=== PATIENT | male | born 1985 | race Caucasian/White ===

== ENCOUNTER 2021-12-05 08:26 | Emergency (ER) | payer OTHER ==
[2021-12-05] MEDS ORDERED: xanAX 0.5 MG PO ONE (08:27)
[2021-12-05 08:46] VITALS: O2SAT 97
[2021-12-05] MEDS ORDERED: Sodium Chloride 0.9% 1000 ML 1,000 ML IV STA (08:50)
[2021-12-05] MEDS ORDERED: TYLENOL 325 MG PO ONE (08:50)
--- NOTE | 2021-12-05 08:57 | ERPHSYRPT ---
- History of Present Illness Time Seen by Provider: 12/05/21 08:50 Source: patient Exam Limitations: no limitations Patient Subjective Stated Complaint: Pt c/o of vomiting, diarrhea, body aches, headache, cough, fever for 2 days Triage Nursing Assessment: Pt brought to the ER by his , hypertensive, rates generalized pain as 8/10, skin n/w/clammy, pulses normal, vomiting and diarrhea, headache, cough with thin white or clear sputum, congested Physician History: Patient is a 36-year-old male presents to emergency department for evaluation of fever cough, nausea vomiting diarrhea diffuse abdominal pain loss of taste headache body ache and fatigue progressive over 2 days. Body aches rated 8 out of 10. Patient feels feverish however no objective fevers measured at home. Patient currently afebrile. Symptoms are mild to moderate in intensity. Patient states he has positive COVID exposure. He has not been tested for COVID. No specific worsening improving factors. Patient states otherwise healthy. He voices no other complaints or concerns at this time. Timing/Duration: day(s) (2 days) Severity: moderate Modifying Factors: Improves With: nothing Associated Symptoms: No chest pain, No rash, No syncope, No seizure Allergies/Adverse Reactions: No Known Drug Allergies Allergy (Verified 12/05/21 08:46) Home Medications: ALPRAZolam 1 MG [Xanax 1 mg] 1 mg PO TID PRN 12/05/21 [History] Citalopram Hydrobromide [Celexa] 40 mg PO DAILY 12/05/21 [History] Loratadine 10 mg [Claritin 10 mg] 10 mg PO DAILY 12/05/21 [History] Nadolol 20 mg [Corgard 20 MG] 20 mg PO DAILY 12/05/21 [History] lisinopriL [Lisinopril] 40 mg PO DAILY 12/05/21 [History] Hx Influenza Vaccination/Date Given: No Hx Pneumococcal Vaccination/Date Given: No Immunizations Up to Date: No Travel Risk - International Travel Have you traveled outside of the country in past 3 weeks: No - Coronavirus Screening Are you exhibiting any of the following symptoms?: Yes Symptoms: Fever, Cough: New Onset, Vomiting/Diarrhea, Loss of Taste or Smell, Headaches/Body Aches/Fatigue Close contact with a COVID-19 positive Pt in past 14-21 Days: Yes - Vaccine Status Have you recieved a Covid-19 vaccination: No - Review of Systems Constitutional: No Symptoms, No Fever, No Chills Eyes: No Symptoms Ears, Nose, & Throat: No Symptoms Respiratory: No Symptoms, No Cough, No Dyspnea Cardiac: No Symptoms, No Chest Pain, No Edema, No Syncope Abdominal/Gastrointestinal: No Symptoms, No Abdominal Pain, No Nausea, No Vomiting, No Diarrhea Genitourinary Symptoms: No Symptoms, No Dysuria Musculoskeletal: No Symptoms, No Back Pain, No Neck Pain Skin: No Symptoms, No Rash Neurological: No Symptoms, No Dizziness, No Focal Weakness, No Sensory Changes Psychological: No Symptoms Endocrine: No Symptoms Hematologic/Lymphatic: No Symptoms Immunological/Allergic: No Symptoms All Other Systems: Reviewed and Negative - Past Medical History Pertinent Past Medical History: Yes Cardiac History: Hypertension Psycho-Social History: Anxiety - Past Surgical History Past Surgical History: Yes Musculoskeletal: Orthopedic Surgery Other Surgical History: knees - Social History Smoking Status: Never smoker Exposure to second hand smoke: No Drug Use: none Patient Lives Alone: No - Nursing Vital Signs Nursing Vital Signs: Initial Vital Signs Temperature 99.0 F 12/05/21 08:34 Pulse Rate 76 12/05/21 08:34 Blood Pressure 187/117 12/05/21 08:34 O2 Sat by Pulse Oximetry 97 12/05/21 08:34 Pain Scale Pain Intensity 8 - Physical Exam General Appearance: no apparent distress, alert, other (Patient mildly diaphoretic however he is conversant well-appearing no acute distress. Patient conversant and appears to be in good spirits.) Eye Exam: PERRL/EOMI, eyes nml inspection Ears, Nose, Throat Exam: normal ENT inspection, TMs normal, pharynx normal, moist mucous membranes Neck Exam: normal inspection, non-tender, supple, full range of motion Respiratory Exam: normal breath sounds, lungs clear, No respiratory distress Cardiovascular Exam: regular rate/rhythm, normal heart sounds, normal peripheral pulses Gastrointestinal/Abdomen Exam: soft, normal bowel sounds, tenderness (Mild diffuse abdominal tenderness. Overlying soft tissue intact. No signs of trauma.), No mass Back Exam: normal inspection, normal range of motion, No CVA tenderness, No vertebral tenderness Extremity Exam: normal inspection, normal range of motion, pelvis stable Neurologic Exam: alert, oriented x 3, cooperative, normal mood/affect, sensation nml, No motor deficits Skin Exam: normal color, warm, dry, No rash Lymphatic Exam: No adenopathy SpO2 Interpretation: normal SpO2: 97 O2 Delivery: Room Air - Course Nursing assessment & vital signs reviewed: Yes - Radiology Exams Chest X-ray Interpretation: Teleradiologist Report (Normal heart lungs. Intact bony thorax. Mild degenerative changes) Ordered Tests: Active Orders 24 hr Category Date Time Status IV Insertion STAT Care 12/05/21 08:50 Active ABDOMEN AND PELVIS W/0 CONTRAS [CT] Stat Exams 12/05/21 08:51 Completed CHEST 1 VIEW (PORTABLE) Routine Exams 12/05/21 09:59 Completed CBC W DIFF Stat Lab 12/05/21 09:06 Completed CMP Stat Lab 12/05/21 09:06 Completed LIPASE Stat Lab 12/05/21 09:06 Completed TROPONIN Q4H Lab 12/05/21 09:06 Completed TROPONIN Q4H Lab 12/05/21 13:00 Ordered TROPONIN Q4H Lab 12/05/21 17:00 Ordered UA W/RFX CULTURE Stat Lab 12/05/21 Ordered Medication Summary Discontinued Medications Generic Name Dose Route Start Last Admin Trade Name Freq PRN Reason Stop Dose Admin Acetaminophen 975 mg 12/05/21 08:50 12/05/21 09:05 Acetaminophen 325 Mg Tablet PO 12/05/21 08:51 975 mg STAT ONE Administration Acetaminophen Confirm 12/05/21 09:04 Acetaminophen 325 Mg Tablet Administered 12/05/21 09:05 Dose 975 mg .ROUTE .STK-MED ONE Alprazolam 1 mg 12/05/21 10:34 Alprazolam 1 Mg Tablet PO 12/05/21 10:35 ONCE STA Sodium Chloride 1,000 mls @ 999 mls/hr 12/05/21 08:50 12/05/21 10:17 Sodium Chloride 0.9% 1000 Ml IV 12/05/21 09:50 Infused .Q1H1M STA Infusion Sodium Chloride Confirm 12/05/21 09:04 Sodium Chloride 0.9% 1000 Ml Administered 12/05/21 09:05 Dose 1,000 mls @ ud .ROUTE .STK-MED ONE Lab/Rad Data: Laboratory Result Diagrams 12/05/21 09:06 12/05/21 09:06 Laboratory Results 12/05/21 12/05/21 12/05/21 Range/Units 09:06 09:06 09:06 WBC 5.8 (4.0-10.5) x10^3/uL RBC 4.69 (4.1-5.6) x10^6/uL Hgb 13.4 (12.5-18.0) g/dL Hct 38.8 L (42-50) % MCV 82.7 (78-100) fL MCH 28.6 (26-32) pg MCHC 34.5 (32-36) g/dL RDW 12.4 (11.5-14.0) % Plt Count 209 (150-450) x10^3/uL MPV 9.1 (7.5-11.0) fL Gran % 63.2 (36.0-66.0) % Immature Gran % (Auto) 0.3 (0.00-0.4) % Nucleat RBC Rel Count 0.0 (0.00-0.1) % Eos # (Auto) 0.12 (0-0.5) x10^3/uL Immature Gran # (Auto) 0.02 (0.00-0.03) x10^3u/L Absolute Lymphs (auto) 1.18 (1.0-4.6) x10^3/uL Absolute Monos (auto) 0.77 (0.0-1.3) x10^3/uL Absolute Nucleated RBC 0.00 (0.00-0.01) x10^3u/L Lymphocytes % 20.5 L (24.0-44.0) % Monocytes % 13.4 H (0.0-12.0) % Eosinophils % 2.1 (0.00-5.0) % Basophils % 0.5 (0.0-0.4) % Absolute Granulocytes 3.64 (1.4-6.9) x10^3/uL Basophils # 0.03 (0-0.4) x10^3/uL Sodium 136 L (137-145) mmol/L Potassium 4.0 (3.5-5.1) mmol/L Chloride 101 (98-107) mmol/L Carbon Dioxide 26 (22-30) mmol/L Anion Gap 13.8 (5-15) MEQ/L BUN 10 (9-20) mg/dL Creatinine 0.71 (0.66-1.25) mg/dL Estimated GFR > 60.0 ML/MIN Glucose 104 (74-106) mg/dL Calcium 9.0 (8.4-10.2) mg/dL Total Bilirubin 0.40 (0.2-1.3) mg/dL AST 23 (17-59) U/L ALT 19 (0-50) U/L Alkaline Phosphatase 67 (38-126) U/L Troponin I < 0.012 (0.000-0.034) ng/mL Serum Total Protein 8.1 (6.3-8.2) g/dL Albumin 4.7 (3.5-5.0) g/dL Lipase 69 (23-300) U/L Influenza Type A Ag (NEGATIVE) Influenza Type B Ag (NEGATIVE) RSV (PCR) (Negative) SARS-CoV-2 (PCR) (NEGATIVE) 12/05/21 Range/Units 08:58 WBC (4.0-10.5) x10^3/uL RBC (4.1-5.6) x10^6/uL Hgb (12.5-18.0) g/dL Hct (42-50) % MCV (78-100) fL MCH (26-32) pg MCHC (32-36) g/dL RDW (11.5-14.0) % Plt Count (150-450) x10^3/uL MPV (7.5-11.0) fL Gran % (36.0-66.0) % Immature Gran % (Auto) (0.00-0.4) % Nucleat RBC Rel Count (0.00-0.1) % Eos # (Auto) (0-0.5) x10^3/uL Immature Gran # (Auto) (0.00-0.03) x10^3u/L Absolute Lymphs (auto) (1.0-4.6) x10^3/uL Absolute Monos (auto) (0.0-1.3) x10^3/uL Absolute Nucleated RBC (0.00-0.01) x10^3u/L Lymphocytes % (24.0-44.0) % Monocytes % (0.0-12.0) % Eosinophils % (0.00-5.0) % Basophils % (0.0-0.4) % Absolute Granulocytes (1.4-6.9) x10^3/uL Basophils # (0-0.4) x10^3/uL Sodium (137-145) mmol/L Potassium (3.5-5.1) mmol/L Chloride (98-107) mmol/L Carbon Dioxide (22-30) mmol/L Anion Gap (5-15) MEQ/L BUN (9-20) mg/dL Creatinine (0.66-1.25) mg/dL Estimated GFR ML/MIN Glucose (74-106) mg/dL Calcium (8.4-10.2) mg/dL Total Bilirubin (0.2-1.3) mg/dL AST (17-59) U/L ALT (0-50) U/L Alkaline Phosphatase (38-126) U/L Troponin I (0.000-0.034) ng/mL Serum Total Protein (6.3-8.2) g/dL Albumin (3.5-5.0) g/dL Lipase (23-300) U/L Influenza Type A Ag NEGATIVE (NEGATIVE) Influenza Type B Ag NEGATIVE (NEGATIVE) RSV (PCR) NEGATIVE (Negative) SARS-CoV-2 (PCR) POSITIVE A (NEGATIVE) - Progress Progress: improved Progress Note: Patient reassessed. He appears well. Patient in good spirits. Vitals stable. Work-up reveals COVID positive. Tiny left fatty inguinal hernia observed on CAT scan. Chest x-ray clear. Decadron administered. patient not hypoxic. No tachypnea. No indication for further work-up at this time. Patient agrees to follow-up with primary care doctor within 48 hours for evaluation. Portions of this note were created with voice recognition technology. There may be grammatical, spelling, punctuation or sound alike errors 12/05/21 10:37 Patient requested Xanax due to his anxiety. He is on Xanax at home scheduled 12/05/21 10:45 Counseled pt/family regarding: lab results, diagnosis, rad results - Departure Departure Disposition: Home Clinical Impression: COVID-19, Left inguinal hernia, Spondylolysis Condition: Stable Critical Care Time: No Referrals: ROGER CERDA [Primary Care Provider] - Follow up/PCP as directed Additional Instructions: Discharge/Care Plan JAYDON ISAAC was seen on 12/05/21 in the Emergency Room. The patient was counseled regarding Diagnosis,Lab results, Imaging studies, need for follow up and when to return to the Emergency Room. Prescriptions given: Discharge Note I have spoken with the patient and/or caregivers. I have explained the patient's condition, diagnosis and treatment plan based on the information available to me at this time. I have answered the patient's and/or caregiver's questions and addressed any concerns. The patient and/or caregivers have as good understanding of the patient's diagnosis, condition and treatment plan as can be expected at t his point. The vital signs have been stable. The patient's condition is stable and appropriate for discharge from the emergency department. The patient will pursue further outpatient evaluation with the primary care physician or other designated or consulting physician as outlined in the discharge instructions. The patient and/or caregivers are agreeable to this plan of care and follow-up instructions have been explained in detail. The patient and/or caregivers have received these instruction. The patient/and or caregivers are aware that any significant change in condition or worsening of symptoms should prompt an immediate return to this or the closest emergency department or call 911.
[2021-12-05] MEDS ORDERED: TYLENOL 325 MG ONE (09:04)
[2021-12-05] MEDS ORDERED: Sodium Chloride 0.9% 1000 ML 1,000 ML ONE (09:04)
[2021-12-05 09:10] LABS: Absolute Neutrophil Ct (ANC) 3.64 x10^3/uL (1.4-6.9); Basophil (Absolute #) 0.03 x10^3/uL (0-0.4); Eosinophil % 2.1 % (0.00-5.0); Eosinophil (Absolute #) 0.12 x10^3/uL (0-0.5); Hematocrit 38.8 % (42-50); Hemoglobin 13.4 g/dL (12.5-18.0); Lymphocyte (Absolute #) 1.18 x10^3/uL (1.0-4.6); Lymphocytes % 20.5 % (24.0-44.0); Mean Cell Volume 82.7 fL (78-100); Mean Corpuscular Hemoglobin 28.6 pg (26-32); Mean Corpuscular Hgb Concent. 34.5 g/dL (32-36); Mean Platelet Volume 9.1 fL (7.5-11.0); Monocyte (Absolute #) 0.77 x10^3/uL (0.0-1.3); Monocytes % 13.4 % (0.0-12.0); Neutrophil % 63.2 % (36.0-66.0); Platelet Count 209 x10^3/uL (150-450); Red Blood Count 4.69 x10^6/uL (4.1-5.6); Red Cell Distribution Width 12.4 % (11.5-14.0); White Blood Count 5.8 x10^3/uL (4.0-10.5)
[2021-12-05 09:27] LABS: ALBUMIN 4.7 g/dL (3.5-5.0); ALKALINE PHOSPHATASE 67 U/L (38-126); ANION GAP 13.8 MEQ/L (5-15); BLOOD UREA NITROGEN 10 mg/dL (9-20); CHLORIDE 101 mmol/L (98-107); Carbon Dioxide 26 mmol/L (22-30); Creatinine 1 0.71 mg/dL (0.66-1.25); EST GLOMERULAR FILTRATION RATE > 60.0 ML/MIN; Glucose 104 mg/dL (74-106); LIPASE 69 U/L (23-300); SGOT/AST 23 U/L (17-59); SGPT/ALT 19 U/L (0-50); SODIUM 136 mmol/L (137-145); Total Protein 8.1 g/dL (6.3-8.2)
[2021-12-05 09:53] LABS: INFLUENZA A NEGATIVE (NEGATIVE); INFLUENZA B NEGATIVE (NEGATIVE); RESPIRATORY SYNCTIAL VIRUS NEGATIVE (Negative)
[2021-12-05 10:10] LABS: SARS-CoV-2 Xpert Express POSITIVE (NEGATIVE)
--- NOTE | 2021-12-05 10:20 | XRAY ---
Indication: Fever. Comparison: None Portable chest demonstrates normal heart and lungs. Bony thorax intact with mild degenerative changes.
--- NOTE | 2021-12-05 10:22 | XRAY ---
Indication: Fever, nausea, vomiting, and weakness. Positive Covid 19. Multiple contiguous axial images obtained through the abdomen and pelvis without contrast. Comparison: None Lung bases clear. Heart not enlarged. Noncontrasted stomach and bowel loops appear nonobstructed with normal appendix. No free fluid/air. Remaining liver, gallbladder, pancreas, spleen, adrenal glands, kidneys, ureters, bladder, and aorta appear unremarkable for noncontrast exam. Osseous structures intact with minimal/mild degenerative changes throughout the thoracolumbar spine. Tiny fatty left inguinal hernia. Impression: Multilevel degenerative spondylosis and tiny fatty left inguinal hernia. Remaining CT abdomen/pelvis without contrast exam is negative.
[2021-12-05] MEDS ORDERED: XANAX 1 MG PO STA (10:34)
[2021-12-05] MEDS ORDERED: xanAX 0.5 MG ONE (10:36)
[2021-12-05] MEDS ORDERED: DECADRON 10MG INJ. IV ONE (10:38)
[2021-12-05 10:41] VITALS: BP 190/121; PULSE 70
[2021-12-05] MEDS ORDERED: DECADRON 10MG INJ. ONE (10:48)
[2021-12-05 13:07] LABS: Appearance CLEAR (CLEAR); Bilirubin NEGATIVE (NEGATIVE); Glucose NEGATIVE (NEGATIVE); Ketones NEGATIVE (NEGATIVE); Nitrite NEGATIVE (NEGATIVE); Protein,Urine Dip NEGATIVE (Negative); RBC NEGATIVE Ery/ul (0-5); Urobilinogen 0.2 mg/dL (0-1)
[2021-12-05 13:08] LABS: Dipstick done @ ? MAIN LAB
[2021-12-05 13:10] LABS: Mucus SLIGHT /HPF (NEGATIVE)
[2021-12-05 13:12] LABS: Urine Cultured Indicated? NO
== END 2021-12-05 10:52 | disposition home or self-care (01) ==
LOC: ED 08:26
DX: U07.1 COVID-19 (principal); K40.90 Unilateral inguinal hernia, without obstruction or gangrene, not specified as recurrent; M47.815 Spondylosis without myelopathy or radiculopathy, thoracolumbar region; R50.9 Fever, unspecified; R05.1 Acute cough; R11.2 Nausea with vomiting, unspecified; R19.7 Diarrhea, unspecified; R10.84 Generalized abdominal pain; R43.9 Unspecified disturbances of smell and taste; R51.9 Headache, unspecified; M79.10 Myalgia, unspecified site; R53.83 Other fatigue; Z20.822 Contact with and (suspected) exposure to COVID-19; I10 Essential (primary) hypertension; Z79.899 Other long term (current) drug therapy; Z28.310 Unvaccinated for COVID-19
CPT/HCPCS: 0241U; 36000; 36415; 71045; 74176; 80053; 81015; 83690; 84484; 85025; 96360; 99284; J1100; A9270-GY

== ENCOUNTER 2023-10-03 11:23 | Emergency (ER) | payer OTHER ==
[2023-10-03 11:33] VITALS: TEMP 97.8
[2023-10-03 11:55] VITALS: PULSE 93; RESP 18; O2SAT 94
--- NOTE | 2023-10-03 12:18 | XRAY ---
CLINICAL HISTORY: pain COMPARISON: None. TECHNIQUE: X-ray Ap, lateral and oblique 3 views of left foot. FINDINGS: Small achilles insertion enthesophyte at posterior calcaneus was noted. No lytic or sclerotic bony lesion was noted. Normal bone density. Normal soft tissue densities. No fracture seen. No dislocation noted. IMPRESSION: 1. Small achilles insertion enthesophyte at posterior calcaneus was noted. 2. No other osseous abnormality noted. DISCLAIMER:A subtle bone abnormality or fracture may not be readily apparent on x-rays, thus clinical correlation and further imaging including follow up CT, MRI, or follow up x-rays are advised as needed. Electronically Signed by: Raúl Haro MD. (10/03/2023 12:13:37 EDT)
--- NOTE | 2023-10-03 12:36 | XRAY ---
CLINICAL HISTORY: pain COMPARISON: None. TECHNIQUE: X-ray AP, lateral and oblique mortise view of left ankle. FINDINGS: Diffuse soft tissue mild swelling noted, for clinical correlation. No lytic or sclerotic bony lesion was noted. Normal bone density. No fracture seen. No dislocation noted. Small achilles insertion enthesophyte at posterior calcaneus was noted. IMPRESSION: Diffuse soft tissue mild swelling noted, for clinical correlation. No acute osseous abnormality was noted. DISCLAIMER:A subtle bone abnormality or fracture may not be readily apparent on x-rays, thus clinical correlation and further imaging including follow up CT, MRI, or follow up x-rays are advised as needed. Electronically Signed by: Raúl Haro MD. (10/03/2023 12:32:23 EDT)
--- NOTE | 2023-10-03 12:52 | XRAY ---
CLINICAL HISTORY: pain COMPARISON: None. TECHNIQUE: Multiple AP and lateral views of x ray left tibia and fibula. FINDINGS: Mild soft tissue swelling was noted. No lytic or sclerotic bony lesion was noted. Normal bone density. No fracture seen. No dislocation noted. Small achilles insertion enthesophyte at posterior calcaneus was noted. IMPRESSION: 1. Mild soft tissue swelling was noted, needs clinical correlation. 2. No acute osseous abnormality noted. DISCLAIMER:A subtle bone abnormality or fracture may not be readily apparent on x-rays, thus clinical correlation and further imaging including follow up CT, MRI, or follow up x-rays are advised as needed. Electronically Signed by: Raúl Haro MD. (10/03/2023 12:47:42 EDT)
[2023-10-03 13:01] VITALS: BP 153/111
[2023-10-03] MEDS ORDERED: MORPHINE SULFATE 4 MG INJ ONE (13:05)
[2023-10-03] MEDS: MORPHINE SULFATE 4 MG INJ IM ONE (13:06)
--- NOTE | 2023-10-03 13:08 | ERPHSYRPT ---
- History of Present Illness Time Seen by Provider: 10/03/23 11:58 Source: patient Exam Limitations: no limitations Patient Subjective Stated Complaint: Pt states "I slipped yesterday and fell a couple of feet and landed on the outside of my left ankle." Triage Nursing Assessment: Pt presented alert and oriented X 3, skin wpd. Pt ambulates with a limp. PT left ankle and foot swollen and tender. Physician History: 38 years old morbidly obese male with history of hypertension, anxiety presented in the ER with complains of left foot ankle and lower leg swelling and pain since yesterday after he twisted his ankle while getting out of a truck. Patient reports moderate to severe sharp shooting pain more on the proximal anterior lateral foot/ankle and lower leg. Difficulty ambulation and worsening with weightbearing. No numbness or tingling at the toes. Taking ibuprofen with no relief at all. No injury anywhere else. Allergies/Adverse Reactions: No Known Drug Allergies Allergy (Verified 12/05/21 08:46) Home Medications: ALPRAZolam 1 MG [Xanax 1 mg] 1 mg PO TID PRN 12/05/21 [History] Citalopram Hydrobromide [Celexa] 40 mg PO DAILY 12/05/21 [History] Loratadine 10 mg [Claritin 10 mg] 10 mg PO DAILY 12/05/21 [History] Nadolol 20 mg [Corgard 20 MG] 20 mg PO DAILY 12/05/21 [History] lisinopriL [Lisinopril] 40 mg PO DAILY 12/05/21 [History] Hx Tetanus, Diphtheria Vaccination/Date Given: No Hx Influenza Vaccination/Date Given: No Hx Pneumococcal Vaccination/Date Given: No Immunizations Up to Date: No Travel Risk - International Travel Have you traveled outside of the country in past 3 weeks: No - Emerging Infectious Disease Are you exhibiting symptoms associated with any current EIDs: No - Review of Systems Constitutional: No Symptoms Ears, Nose, & Throat: No Symptoms Respiratory: No Symptoms Cardiac: No Symptoms Abdominal/Gastrointestinal: No Symptoms Musculoskeletal: Injury, Joint Pain, Joint Swelling Neurological: No Symptoms Endocrine: No Symptoms - Past Medical History Pertinent Past Medical History: Yes Cardiac History: Hypertension Psycho-Social History: Anxiety - Past Surgical History Past Surgical History: Yes Musculoskeletal: Orthopedic Surgery Other Surgical History: knees - Social History Smoking Status: Never smoker Exposure to second hand smoke: No Drug Use: none Patient Lives Alone: No - Social Determinants of Health Will the patient participate in the screening: Declined to provide - Nursing Vital Signs Nursing Vital Signs: Initial Vital Signs Temperature 97.8 F 10/03/23 11:29 Pulse Rate 94 H 10/03/23 11:29 Respiratory Rate 22 10/03/23 11:29 Blood Pressure 162/100 10/03/23 11:29 O2 Sat by Pulse Oximetry 90 L 10/03/23 11:29 Pain Scale Pain Intensity 0 - Physical Exam General Appearance: no apparent distress, alert Neck Exam: normal inspection, full range of motion Cardiovascular/Respiratory Exam: normal breath sounds, regular rate/rhythm Back Exam: normal inspection, normal range of motion Hips Exam: bilateral: non-tender, normal inspection, normal range of motion Legs Exam: bilateral leg: non-tender, normal inspection, normal range of motion, no evidence of injury Knees Exam: bilateral knee: non-tender, normal inspection, normal range of motion, no evidence of injury Ankle Exam: right ankle: non-tender, normal inspection, normal range of motion, no evidence of injury, left ankle: bone tenderness (Bimalleolar), limited range of motion, pain, soft tissue tenderness, swelling Foot Exam: right foot: non-tender, normal inspection, normal range of motion, no evidence of injury, left foot: bone tenderness (Proximal anterolateral foot), limited range of motion, pain, soft tissue tenderness, swelling Neuro/Tendon Exam: normal sensation, normal motor functions, normal tendon functions Mental Status Exam: alert, oriented x 3, cooperative Skin Exam: normal color SpO2 Interpretation: normal SpO2: 94 O2 Delivery: Room Air Ordered Tests: Active Orders 24 hr Category Date Time Status ANKLE (3 VIEWS) Stat Exams 10/03/23 11:33 Completed FOOT (MINIMUM 3 VIEWS) Stat Exams 10/03/23 11:33 Completed LOWER LEG Stat Exams 10/03/23 11:33 Completed Medication Summary Discontinued Medications Generic Name Dose Route Start Last Admin Trade Name Freq PRN Reason Stop Dose Admin Morphine Sulfate 4 mg 10/03/23 12:46 10/03/23 13:06 Morphine Sulfate 4 Mg/Ml Injection IM 10/03/23 12:47 4 mg STAT ONE Administration Morphine Sulfate Confirm 10/03/23 13:05 Morphine Sulfate 4 Mg/Ml Injection Administered 10/03/23 13:06 Dose 4 mg .ROUTE .STK-MED ONE - Progress Progress: pain not gone completely Progress Note: 10/03/23 13:12 38-year-old is evaluated for fall with twisting left ankle yesterday with diffuse swelling of foot and ankle and painful lower lateral leg. Patient has soft compartments. Distal neurovascular intact. X-rays foot ankle and tib-fib reviewed by me followed by official read are negative for fracture dislocation. I believe patient has ankle sprain. Placed in long walking boot, weightbearing as tolerated and outpatient follow-up with podiatry recommended. He is given symptomatic treatment in here and will continue with tramadol and ibuprofen to go home. Discussed signs symptoms of worsening needing return to ER which she seems understanding. Counseled pt/family regarding: diagnosis, need for follow-up, rad results Medical Desision Making - Diagnostic Testing Diagnostic test were ordered, analyzed, and reviewed by me: Yes Radiological Interpretation: Interpreted by me, Reviewed by me, Teleradiologist Report - Risk of complications The pt has a mod risk of morbidity or mortality based on: Need for prescription drug management - Departure Departure Disposition: Home Clinical Impression: Ankle sprain, Foot sprain Condition: Stable Critical Care Time: No Referrals: ROGER CERDA [Primary Care Provider] - Follow up with PCP 1 day INGA PRIETO DPM [ACTIVE STAFF] - (For appointment for reevaluation in the morning) Instructions: Ankle Sprain ED, Foot Sprain ED Additional Instructions: Tylenol/ibuprofen as needed. Keep it elevated. Intermittent ice application. Weightbearing as tolerated. Follow-up with podiatry for reevaluation. Return to ER for worsening pain, difficulty movements of toes or numbness in the toes etc. Prescriptions: Ibuprofen 600 mg PO Q6HPRN PRN 10 Days #20 tablet PRN Reason: Pain Tramadol HCl 50 mg [Ultram 50 mg] 50 mg PO Q6HPRN PRN 3 Days #12 tablet PRN Reason: Pain
== END 2023-10-03 13:32 | disposition home or self-care (01) ==
LOC: ED 11:23
DX: S93.402A Sprain of unspecified ligament of left ankle, initial encounter (principal); S93.602A Unspecified sprain of left foot, initial encounter; X50.0XXA Overexertion from strenuous movement or load, initial encounter; I10 Essential (primary) hypertension; Z79.899 Other long term (current) drug therapy; Z79.891 Long term (current) use of opiate analgesic
CPT/HCPCS: 73590; 73610; 73630; 96372; 99283; J2270